=== PATIENT | male | born 1995 | race Asian ===

== ENCOUNTER 2018-01-30 12:12 | Emergency (ER) | payer OTHER ==
[~2018-01-30] VITALS: Ht 177.8 cm; Wt 73.5 kg
[2018-01-30 12:23] VITALS: Ht 177.8 cm; Wt 73.5 kg
[2018-01-30 13:11] LABS: BASOPHIL % 0.8 % (0-2); PLATELET COUNT 223 x10^3mcL (130-400); RED CELL DISTRIBUTION WIDTH 13.5 % (11.5-14.5)
[2018-01-30 13:16] LABS: CARBON DIOXIDE 29.3 mmol/L (21-32); CHLORIDE SERUM 105 mmol/L (98-107); CREATININE SERUM 0.8 mg/dL (0.7-1.3); GFR1 > 60 mL/min; GLUCOSE SERUM 90 mg/dL (74-106); POTASSIUM SERUM 3.7 mmol/L (3.5-5.1); SODIUM SERUM 141 mmol/L (136-145)
[2018-01-30 15:20] LABS: AMPHETAMINE QUAL UR NONE DETECTED (See below)
[2018-01-31 04:09] VITALS: BP 143/98
== END 2018-01-31 04:09 ==
LOC: ED 12:12
PROVIDERS: Emergency Medicine
DX: F84.0 Autistic disorder (principal)
CPT/HCPCS: 36415; G0480